=== PATIENT | male | born 1990 | race Caucasian/White ===

== ENCOUNTER 2019-06-05 23:11 | Emergency (ER) | payer SELFPAY ==
[~2019-06-05] VITALS: Ht 188 cm; Wt 98.4 kg
[2019-06-05 23:22] VITALS: BP 149/97; PULSE 120; RESP 16; Ht 188 cm; Wt 98.4 kg
[2019-06-06] MEDS ORDERED: LORAZEPAM 1 MG TAB PO ONE
--- NOTE | 2019-06-06 01:34 | ERD ---
ER Documentation Chief Complaint Chief Complaint SHORTNESS OF BREATH ,RIGHT FOOT SWELLING. HPI This is a 28-year-old man complaining of anxiety after using methamphetamines for the last 2 to 3 days, he denies chest pain or shortness of breath, no fevers or chills, no headache or blurry vision. His initial complaint was right foot redness and swelling although he states that occurred on Thursday and resolved completely. He denies suicidal or homicidal ideation. ROS All systems reviewed and are negative except as per history of present illness. Allergies Allergies: Coded Allergies: No Known Allergy (Unverified , 06/05/19) PMhx/Soc Medical and Surgical Hx: pt denies Medical Hx, pt denies Surgical Hx History of Surgery: Yes (LEFT ARM 2010) Anesthesia Reaction: No Hx Neurological Disorder: No Hx Respiratory Disorders: No Hx Cardiac Disorders: No Hx Psychiatric Problems: No Hx Miscellaneous Medical Probl: No Hx Alcohol Use: No Hx Substance Use: Yes (AMPHETAMINES 06/04/19) Hx Tobacco Use: Yes Smoking Status: Current every day smoker Physical Exam Vitals Vital Signs Date Temp Pulse Resp B/P (MAP) Pulse Ox O2 O2 Flow FiO2 Time Delivery Rate 06/05/19 98.2 100 18 147/103 100 Room Air 23:37 (118) 06/05/19 96.4 120 16 149/97 98 23:22 (114) Physical Exam GENERAL: Well-developed, well-nourished, well-hydrated, anxious CARDIAC: Regular rate and rhythm, no murmurs rubs or gallops LUNGS: Clear bilaterally no wheezing crackles or stridor ABDOMEN: Soft nontender, no guarding, no rigidity, no rebound, no psoas sign no obturator sign. SKIN: Warm and dry to touch, no abrasions, contusions, or hematomas, no lacerations, no ecchymosis, no target lesions, and without ulcers EXTREMITIES: No clubbing cyanosis or edema, calves are bilaterally symmetrical, no Homans sign, no popliteal cord sign. Distal pulses equal and bilateral PSYCH: Anxious Results 24 hrs Current Medications Medications Dose Sig/Apolinar Start Time Status Last (Trade) Ordered Route PRN Stop Time Admin Dose Reason Admin Lorazepam 1 mg ONCE ONCE 06/06/19 DC 06/05/19 (Ativan) PO 00:00 23:52 06/06/19 00:01 Procedures/MDM I administered lorazepam 1 mg p.o. x1 for his symptoms. Patient feels much better at this time, and vital signs are normal, symptoms have improved. I did give strict instructions to return to the ED if symptoms continue or worsen, patient will otherwise follow-up with primary care physi murray. Patient understood instructions and agreed to plan. Disclaimer: Inadvertent spelling and grammatical errors are likely due to EHR/dictation software use and do not reflect on the overall quality of patient care. Also, please note that the electronic time recorded on this note does not necessarily reflect the actual time of the patient encounter. Departure Diagnosis: Primary Impression: Methamphetamine abuse Additional Impression: Acute anxiety Ruled Out: Foot pain Condition: Good Patient Instructions: Understanding Methamphetamine Abuse and Addiction KILEY GRIFFITHS MD Jun 06, 2019 01:30
== END 2019-06-05 23:55 | disposition home or self-care (01) ==
LOC: E/R 23:11
DX: F15.180 Other stimulant abuse with stimulant-induced anxiety disorder (principal); F17.210 Nicotine dependence, cigarettes, uncomplicated
CPT/HCPCS: 99283